=== PATIENT | female | born 1975 | race Asian ===

== ENCOUNTER 2020-08-15 16:13 | Outpatient (CLI) | payer OTHER, SELFPAY ==
--- NOTE | ~2020-08-15 | MM_ITS ---
EXAMINATION: MM screening [facility] BI w lia HISTORY: Screening TECHNIQUE: Craniocaudal and mediolateral oblique 3-D tomosynthesis images were obtained and synthetic 2-D images were generated. CAD analysis was submitted and interpreted. COMPARISON: Comparison to multiple prior studies sequentially, with oldest reviewed study dated 06/07. BREAST PARENCHYMAL COMPOSITION: There are scattered areas of fibroglandular density. FINDINGS: There is a new focal mass in the lower inner quadrant of the right breast. There are bilate ral skin calcifications. No mammographic evidence for malignancy in the left breast. IMPRESSION: 1. New 8 mm mass lower inner quadrant of the right breast posteriorly near the chest wall. 2. Additional mammographic views and possible breast ultrasound are recommended. BI-RADS Category 0: Incomplete: Needs additional imaging evaluation. Reviewed, dictated and finalized at location A. TER CARTOGRAPHIC IMPRESSION: 1. New 8 mm mass lower inner quadrant of the right breast posteriorly near the chest wall. 2. Additional mammographic views and possible breast ultrasound are recommended . BI-RADS Category 0: Incomplete: Needs additional imaging evaluation.
== END 2020-08-15 16:14 | disposition home or self-care (01) ==
LOC: ANHIMG 16:15
PROVIDERS: PCP Family Medicine; Visit Provider Obstetrics & Gynecology
DX: Z12.31 Encounter for screening mammogram for malignant neoplasm of breast (principal); R92.8 Other abnormal and inconclusive findings on diagnostic imaging of breast
CPT/HCPCS: 77063; 77067

== ENCOUNTER 2020-09-16 11:19 | Outpatient (CLI) | payer OTHER, SELFPAY ==
--- NOTE | ~2020-09-16 | MMUS_ITS ---
EXAMINATION: MM diagnostic mammo unilat RT, US breast RT limited HISTORY: Follow-up right breast mass TECHNIQUE: Additional 3-D tomosynthesis images of the right breast were performed and synthetic 2-D i mages were generated. CAD analysis was submitted and interpreted. High resolution Limited right breas t ultrasound was performed. COMPARISON: 09/16/2020 BREAST PARENCHYMAL COMPOSITION: Breast composed of scattered areas of fibroglandular density. FINDINGS: MAMMOGRAPHIC FINDINGS: There is a persistent mass corresponding to a skin lesion identified in the lower inner quadrant of t he right breast. This is indicated with a circular radiopaque marker. The mass is located posteriorly adjacent to the pectoralis muscle. ULTRASOUND: Limited right breast ultrasound in the area of palpable abnormality. There is a complex cystic lesion at 4:00, 13 cm from the nipple without internal vascularity measuring 7 x 7 x 5 mm, likely benign se baceous cysts. IMPRESSION: 1. Probable benign complicated cyst of the right breast at 4:00, 13 cm from the nipple. 2. Recommend 6 month follow-up right breast ultrasound BI-RADS category 3, probably benign findings. Reviewed, dictated and finalized at location A. OR LOAN PROCESSOR IMPRESSION: 1. Probable benign complicated cyst of the right breast at 4:00, 13 cm from the nipple. 2. Recommend 6 month follow-up right breast ultrasound BI-RADS category 3, probably benign findings.
== END 2020-09-16 11:20 | disposition home or self-care (01) ==
LOC: ANHIMG 11:20
PROVIDERS: PCP Family Medicine; Visit Provider Obstetrics & Gynecology
DX: N63.10 Unspecified lump in the right breast, unspecified quadrant (principal)
CPT/HCPCS: 76642; 77065

== ENCOUNTER 2020-12-09 15:48 | Outpatient (CLI) | payer OTHER, SELFPAY ==
--- NOTE | ~2020-12-09 | XR_ITS ---
EXAMINATION: XR abdomen/kub 1V INDICATION: Calculus of the right kidney TECHNIQUE: Supine views of the abdomen were obtained on 2 radiographs. COMPARISON: 08/29/2014; CT, 07/17/2019 FINDINGS: There is an approximately 1.5 cm calculus projecting in the right mid kidney. There is a 4. 6 cm rim calcified cyst of the right kidney, characterized on the comparison CT. No stones are identi fied in the left kidney, along the expected courses of the ureters, or within the bladder. The bowel gas pattern is normal. The visualized osseous structures are unremarkable. IMPRESSION: 1. 1.5 cm right kidney stone. Reviewed, dictated and finalized at location A. OR LIBRARIAN
== END 2020-12-09 15:49 | disposition home or self-care (01) ==
LOC: ANHIMG 15:58
PROVIDERS: PCP Internal Medicine; Visit Provider Urology
DX: N20.0 Calculus of kidney (principal)
CPT/HCPCS: 74018

== ENCOUNTER 2021-01-17 13:00 | Outpatient (CLI) | payer OTHER, SELFPAY ==
--- NOTE | 2021-01-17 13:00 | ECG_ITS ---
Measurements Intervals [place] Rate: 83 P: 34 IA: 152 QRS: 27 QRSD: 81 T: 33 QT: 343 QTc: 404 Interpretive Statements SINUS RHYTHM NONSPECIFIC ST & T-WAVE ABNORMALITY- INFERIOR LEADS BASELINE ARTIFACT- II, III, AVL, AVF, V3-V6 BORDERLINE ECG Electronically Signed On 01-17-2021 13:23:35 CDT by Sohail Menezes D.O.
[2021-01-17 14:13] LABS: INR 0.9; Partial Thromboplastin Time 27.8 SECONDS (22.3-36.8); Prothrombin Time 13.2 Seconds (11.1-14.7)
[2021-01-17 14:14] LABS: Anion Gap 6 mmol/L (8-16); Blood Urea Nitrogen 13 mg/dL (7-17); Carbon Dioxide 32 mmol/L (22-30); Chloride 105 mmol/L (98-107); Estimated Glomerular Filt Rate > 60; Glucose 91 mg/dL (65-105); Potassium 4.4 mmol/L (3.4-5.0); Sodium 143 mmol/L (137-145)
== END 2021-01-17 13:01 | disposition home or self-care (01) ==
LOC: ANHSURGERY 13:02
PROVIDERS: Anesthesiology; PCP Internal Medicine; Visit Provider Urology
DX: N20.0 Calculus of kidney (principal); I10 Essential (primary) hypertension; Z79.899 Other long term (current) drug therapy; Z01.818 Encounter for other preprocedural examination; R94.31 Abnormal electrocardiogram [ECG] [EKG]
CPT/HCPCS: 36415; 80048; 85610; 85730; 87086; 87088; 93005

== ENCOUNTER → 2021-01-21 00:35 | Outpatient (CLI) | payer OTHER, SELFPAY ==
[2021-01-21 20:44] LABS: SARS-CoV-2 RNA PCR Negative
== END ==
PROVIDERS: PCP Internal Medicine; Visit Provider Urology
DX: Z01.812 Encounter for preprocedural laboratory examination (principal); Z20.822 Contact with and (suspected) exposure to COVID-19
CPT/HCPCS: C9803; U0003; U0005

== ENCOUNTER 2021-01-24 01:18 | Day surgery (SDC) | payer OTHER, SELFPAY ==
[2021-01-17 09:07] VITALS: BMI 27.3
[2021-01-24] VITALS (11 sets, daily range): BP systolic 115–159; BP diastolic 81–97; PULSE 63–77; RESP 12–19; TEMP 36.7–36.8; O2SAT 100; BMI 27.7
--- NOTE | ~2021-01-24 | XR_ITS ---
EXAMINATION: XR abdomen/kub 1V INDICATION: Right kidney stone TECHNIQUE: Supine views of the abdomen were obtained on 2 radiographs. COMPARISON: 12/09/2020; CT, 07/17/2019 FINDINGS: There is a 12 mm calcification projecting in the right kidney upper pole at the level of th e L1 transverse process. No stones are identified in the left kidney or the expected locations of the ureters or bladder. The bowel gas pattern is normal. The visualized lung bases are clear. There is r im calcification in the right upper quadrant corresponding to a rim calcified cyst on the comparison CT. IMPRESSION: 1. 12 mm stone of the right kidney upper pole. Reviewed, dictated and finalized at location B.
--- NOTE | 2021-01-24 08:16 | WPDHPUPDATE1 ---
History and Physical Update Update Date/Time: 01/24/21 08:16 History and Physical has been reviewed, including an updated exam of the patient. There are NO changes in the patient's condition. Risks, benefits, and alternatives have been discussed and questions answered. Patient agrees to proceed with procedure. Proceed with right renal eswl with possible right ureteral stent
--- NOTE | 2021-01-24 08:45 | WPDANESEPPF ---
Anes - Initial Pre Proc Eval Procedure: Operation Date: 01/24/21 10:00 Proposed Procedures p Right Renal Extracorporeal Shock Wave Lithotripsy - Keyshawn Valles MD s Possible Cystoscopy, Possible Right Stent Placement - Keyshawn Valles MD Date/Time: 01/24/21 08:45 Surgeon: Keyshawn Valles MD Pre Op Diagnosis: right calculus of kidney Patient Data Age: 45 Gender: F Height: 5 ft 2 in Weight: 68.8 kg Last Vital Signs Temp 36.8 C 01/24/21 08:30 Pulse 72 01/24/21 08:30 Resp 18 01/24/21 08:30 BP 115/82 01/24/21 08:30 Pulse Ox 100 01/24/21 08:30 Allergies Allergy/AdvReac Type Severity Reaction Status Date / Time ibuprofen Allergy Unknown Seizure Verified 01/24/21 08:30 Home Medications Medication Instructions Recorded Confirmed Type hydrochlorothiazide 12.5 mg capsule 12.5 mg PO DAILY 11/22/20 01/17/21 History lisinopril 5 mg tablet 5 mg PO DAILY #90 tablet 11/22/20 01/17/21 Rx calcium carbonate-vitamin D3 1 tablet PO DAILY 01/17/21 01/17/21 History [Calcium + D] Patient hx anesthesia problems: none Family hx anesthesia problems: none PMFSH Past Medical History Medical History Fibroids Hypertension Surgical History Surgical History History of hysterectomy Family History Family History Mother Hypertension Arthritis Father Hypertension Cerebrovascular accident Family history of diabetes mellitus in first degree relative Social History Social History Smoking status: Never smoker Alcohol intake: never Substance use: never Substance use type: does not use Living arrangements: with family Spiritual care concerns: No Anes - Eval Final PreProcedure Day of Procedure 01/24/21 08:45 Patient weight: overweight Heart: regular rate and rhythm Lungs: clear to auscultation Airway: Mallampati scale class II Neurological: alert and oriented Last oral intake: >/= 8 hours ASA classification: II Emergent: no Anesthetic plan: proceed Anesthesia type and monitoring: general LMA and standard monitoring Informed Consent: The patient's anesthetic plan and its attendant risks and benefits were discussed with the patient/family/POA. Questions were solicited and answers provided to the satisfaction of the patient/family/POA.
[2021-01-24] MEDS: LACTATED RINGERS 1,000 ML 30 ML IV CONT ×2 (08:50→10:28)
[2021-01-24] MEDS: ceFAZolin 2 GM/D5W 50 ML 2 GM/50 ML BAG IVPB (09:37)
[2021-01-24] MEDS: LIDOCAINE HCL 2% GEL UROJET 10 ML PKG MUCOUS MEM (09:53)
--- NOTE | 2021-01-24 10:09 | SUR.OPER ---
RIGHT URETERAL STENT 4.8FR 22CM-30CM LOT [id number], EXP 11/11/23
--- NOTE | 2021-01-24 10:17 | P.OP_ITS ---
Procedure Note - Detailed Date of procedure: 01/24/21 Pre-op diagnosis: right calculus of kidney Post-op diagnosis: same Procedure performed: Flexible cystoscopy, right retrograde pyelogram, right ureteral stent placement 4.8 [place] contour, ESWL right upper pole renal calculus Description of procedure: Patient is taken the operative suite and correctly identified. Once anesthesia was obtained she was placed in frog-leg position and prepped draped usual sterile fashion. Flexible cystoscope was placed. The bladder is inspected in its entirety. Both ureteral orifices normal anatomic position. There are no tumors noted. The right ureteral orifice was cannulated with a guidewire. A [place] was then inserted over the guidewire and a pyelogram was performed. It is apparent that the stone is in the upper pole calyx. The wire was then replaced and a 4.8 [place] contour stent was placed with the proximal end coiled in the renal pelvis and the distal in the bladder. 2% viscous lidocaine was inserted into the urethra. Patient was then repositioned in the stone was localized in both planes. Two thousand five hundred shocks were given to the stone. Patient is taken recovery stable condition. She will follow up in about 10-14 days with a KUB. Anesthesia: GLMA Surgeon: Keyshawn Valles MD Drains: Yes Packing: No Pathology: none sent Complications: No immediate complications Condition: stable Disposition: PACU
[2021-01-24] MEDS: ONDANSETRON INJ 4 MG/2 ML VIAL IV PUSH (11:17)
== END 2021-01-24 13:03 | disposition home or self-care (01) ==
PROVIDERS: PCP Internal Medicine; Visit Provider Urology
PROC: (CPT 50590; principal; 2021-01-24 10:00)
PROC: (CPT 52352; 2021-01-24 10:00)
DX: N20.0 Calculus of kidney (principal); D25.9 Leiomyoma of uterus, unspecified; I10 Essential (primary) hypertension
CPT/HCPCS: 50590; 52332; 36415; 74018; 80048; 85610; 85730; 87086; 87088; 93005; A9270; C1758; C1769; C2617; C9803; J0131; J0690; J1100; J2250; J2405; J2704; J3010; J7030; J7120; Q9966; U0003; U0005

== ENCOUNTER 2021-02-17 08:12 | Outpatient (CLI) | payer OTHER, SELFPAY ==
--- NOTE | ~2021-02-17 | XR_ITS ---
EXAMINATION: XR abdomen/kub 1V DATE: 02/17/2021 08:29 INDICATION: Renal calculus TECHNIQUE: A supine view of the abdomen on 2 radiographs was obtained. COMPARISON: KUB dated 01/24/[address] dated 07/17/2019 FINDINGS: Right internal ureteral stent in expected position interval lithotripsy with residual 4 mm stone frag ment projecting over the interpolar region of the right kidney with loops formed over the right renal pelvis and bladder. There appear to be a few additional 1-2 mm stone fragments in the lower pole of the right kidney and region of the right renal pelvis. No stone fragments seen along the course of th e ureteral stent. 5 cm rim calcified exophytic cyst at the lower pole of the right kidney. Normal bow el gas pattern. 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 IMPRESSION: 1. Changes consistent with interval lithotripsy with a few residual right renal stone fragments, the largest measuring up to 4 mm, and with right internal ureteral stent in expected position. Reviewed, dictated and finalized at location A. IMPRESSION: 1. Changes consistent with interval lithotripsy with a few residual right renal stone fragments, the largest measuring up to 4 mm, and with right internal ure teral stent in expected position.
== END 2021-02-17 08:13 | disposition home or self-care (01) ==
LOC: ANHIMG 08:17
PROVIDERS: PCP Internal Medicine; Visit Provider Urology
DX: N20.0 Calculus of kidney (principal)
CPT/HCPCS: 74018

== ENCOUNTER 2022-09-22 07:49 | Outpatient (CLI) | payer OTHER, SELFPAY ==
--- NOTE | ~2022-09-22 | MM_ITS ---
EXAMINATION: MM screening [facility] BI w lia HISTORY: Screening TECHNIQUE: Craniocaudal and mediolateral oblique 3-D tomosynthesis images were obtained and synthetic 2-D images were generated. CAD analysis was submitted and interpreted. COMPARISON: Comparison to multiple prior studies sequentially, with oldest reviewed study dated 06/07. BREAST PARENCHYMAL COMPOSITION: Breast composed of scattered areas of fibroglandular density FINDINGS: There is a mass in the lower inner quadrant of the right breast near the inframammary fold and a subcutaneous location, slightly larger than on prior examination now measuring 10 mm. The left breast is stable without evidence for malignancy. IMPRESSION: 1. Right breast mass, lower inner quadrant with slight enlargement. 2. Additional mammographic views and possible breast ultrasound are recommended. BI-RADS Category 0: Incomplete: Needs additional imaging evaluation. Reviewed, dictated and finalized at location B. OR DRUPAL DEVELOPER IMPRESSION: 1. Right breast mass, lower inner quadrant with slight enlargement. 2. Additional mammographic views and possible breast ultrasound are recommended . BI-RADS Category 0: Incomplete: Needs additional imaging evaluation.
== END 2022-09-22 07:50 | disposition home or self-care (01) ==
PROVIDERS: PCP Internal Medicine; Visit Provider Internal Medicine
DX: Z12.31 Encounter for screening mammogram for malignant neoplasm of breast (principal); R92.8 Other abnormal and inconclusive findings on diagnostic imaging of breast
CPT/HCPCS: 77063; 77067

== ENCOUNTER 2022-10-13 13:50 | Outpatient (CLI) | payer OTHER, SELFPAY ==
--- NOTE | ~2022-10-13 | MMUS_ITS ---
EXAMINATION: MM diagnostic scott RT w lia, US breast RT limited HISTORY: Right breast mass on screening mammogram TECHNIQUE: Additional 3-D tomosynthesis images of the right breast were performed and synthetic 2-D i mages were generated. CAD analysis was submitted and interpreted. High resolution limited right breas t ultrasound was performed. COMPARISON: 09/22/2022, 09/16/2020, 08/15/2020, 04/21/2019 BREAST PARENCHYMAL COMPOSITION: The breasts are almost entirely fatty. FINDINGS: MAMMOGRAPHIC FINDINGS: There is an 8 mm round, circumscribed, superficial mass in the far posterior third of the inner breas t along the inframammary fold. No suspicious calcification or architectural distortion are identified . ULTRASOUND: There is an 8 mm x 7 mm oval, circumscribed, parallel, hypoechoic mass with posterior acoustic enhanc ement and no internal vascularity at the 4:00 location 11 cm from the nipple. On several images, ther e appears to be a tract to the skin surface, consistent with a sebaceous cyst. IMPRESSION: 1. No mammographic or sonographic evidence of malignancy. 2. Recommend routine screening mammography in one year. BI-RADS Category 2: Benign finding(s). Reviewed, dictated and finalized at location A. INING CHAIR ASSEMBLER IMPRESSION: 1. No mammographic or sonographic evidence of malignancy. 2. Recommend routine screening mammography in one year. BI-RADS Category 2: Benign finding(s).
== END 2022-10-13 13:51 | disposition home or self-care (01) ==
PROVIDERS: PCP Internal Medicine; Visit Provider Internal Medicine
DX: R92.8 Other abnormal and inconclusive findings on diagnostic imaging of breast (principal)
CPT/HCPCS: 76642; 77061; 77065; G0279

== ENCOUNTER 2025-05-09 09:31 | Outpatient (CLI) | payer OTHER, SELFPAY ==
--- NOTE | ~2025-05-09 | MM_ITS ---
EXAMINATION: MM screening [facility] BI w lia HISTORY: Screening TECHNIQUE: Craniocaudal and mediolateral oblique 3-D tomosynthesis images were obtained and synthetic 2-D images were generated. CAD analysis was submitted and interpreted. COMPARISON: Comparison to multiple prior studies sequentially, with oldest reviewed study dated 02/03. BREAST PARENCHYMAL COMPOSITION: Not Dense: The breasts are almost entirely fatty. FINDINGS: There is no evidence of suspicious mass, calcification, or architectural distortion to sugg est malignancy in either breast. There has been no suspicious interval change. IMPRESSION: 1. No mammographic evidence of malignancy. 2. Recommend routine screening mammography in one year. BI-RADS Category 1: Negative Reviewed, dictated and finalized at location B.
== END 2025-05-09 09:32 | disposition home or self-care (01) ==
LOC: CHSIMG 09:32
PROVIDERS: PCP Internal Medicine; Visit Provider Obstetrics & Gynecology
DX: Z12.31 Encounter for screening mammogram for malignant neoplasm of breast (principal)
CPT/HCPCS: 77063; 77067